=== PATIENT | male | born 1955 | race Hispanic/Latino ===

== ENCOUNTER → 2018-03-15 | Outpatient (CLI) | payer OTHER | END | disposition home or self-care (01) | LOC: OIH 09:37 | PROVIDERS: ATTEND Family Medicine | DX: Z02.71 Encounter for disability determination (principal); R06.02 Shortness of breath | CPT/HCPCS: 71046 ==

== ENCOUNTER → 2019-09-14 | Outpatient (CLI) | payer OTHER, MEDICARE ==
--- NOTE | 2019-09-05 12:42 | NUR ---
PT WAS A NO SHOW FOR THIS DATE OF SERVICE
[~2019-09-14] VITALS: Ht 165.1 cm; Wt 107.0 kg
[~2019-09-14] MED LIST: REGADENOSON 0.4 MG/5 ML PF SYG IVP SCH
== END | disposition home or self-care (01) ==
LOC: SHCH 08:31
PROVIDERS: ATTEND Internal Medicine Cardiovascular Disease
DX: R06.02 Shortness of breath (principal)
CPT/HCPCS: 78452; 93017; 96374; A9500 ×2; J2785